=== PATIENT | female | born 1985 | race Native Hawaiian/Other Pacific Islander ===

== ENCOUNTER 2017-06-26 23:24 | Emergency (ER) | payer SELFPAY ==
[2017-06-27] MEDS ORDERED: Sodium Chloride 0.9% 1,000 ML IV STA (00:06)
[2017-06-27 00:32] VITALS: O2SAT 100
[2017-06-27 00:33] VITALS: BMI 20.3
[2017-06-27 01:15] LABS: BASO # 0.07 K/mm3 (0.0-2.0); EOS # 0.3 (0.0-0.7); EOS % 4.4 % (1.5-5.0); GRAN # 3.75 (1.4-6.5); GRAN % 53.5 % (50.0-68.0); HEMOGLOBIN 14.2 gm/dL (12.0-16.0); LYMPH # 2.2 (1.2-3.4); LYMPH % 31.4 % (22.0-35.0); MEAN CELL VOLUME 84.5 fL (80.0-105.0); MEAN CORPUSCULAR HGB CONC 34.3 g/dl (31.0-37.0); MEAN PLATELET VOLUME 10.3 fl (7.0-11.0); MONO # 0.7 (0.1-0.6); MONO % 9.7 % (1.0-6.0); PLATELET COUNT 338 10^3/uL (120.0-450.0); RED CELL DISTRIBUTION WIDTH 12.7 % (11.5-14.5)
--- NOTE | 2017-06-27 01:54 | US ---
EXAM: US Pelvis, Transvaginal CLINICAL HISTORY: 31 years old, female; Pain; Pelvic pain; Patient HX: Bleeding; LMP 06/23/17 TECHNIQUE: Real-time transvaginal pelvic ultrasound (complete) with image documentation. Transvaginal imaging was used for better evaluation of the endometrium and adnexa. EXAM DATE/TIME: 06/27/2017 12:06 AM COMPARISON: There are no prior studies for comparison. FINDINGS: Uterus: Uterus is approximately 10 x 4.4 x 5.6 cm. Endometrium measures approximately 6.1 mm in width. There is a posterior 1.7 x 1.4 x 1.8 cm fibroid. Right ovary: Right ovary measures approximately 2.95 x 1.77 x 2.85 cm. There are multiple small follicles. There is intraovarian blood flow. Left ovary: Left ovary measures approximately 2.35 x 1.86 x 2.99 cm. There are multiple small follicles. There is intraovarian blood flow. Free fluid: There is a small amount of free fluid. IMPRESSION: Small uterine fibroid; no torsion
[2017-06-27 01:57] LABS: PH,URINE 6.5 (4.7-8.0); URINE BILIRUBIN NEGATIVE (NEGATIVE); URINE BLOOD LARGE (NEGATIVE); URINE GLUCOSE (UA) NEGATIVE (NEGATIVE); URINE LEUKOCYTE ESTERASE NEGATIVE Leu/uL (NEGATIVE); URINE NITRATE NEGATIVE (NEGATIVE); URINE PROTEIN NEGATIVE mg/dL (<30 mg/dL); URINE UROBILINOGEN 0.2 E.U./dL (<1 E.U./dL)
--- NOTE | 2017-06-27 01:58 | ED PDOC ---
Arrival/HPI - General Chief Complaint: Female Genitourinary Time Seen by Provider: 06/27/17 00:04 Historian: Patient - History of Present Illness Narrative History of Present Illness (Text): 06/27/17 01:46 31yr old female presents today with lower abdominal pain/cramping. pt states on 3 days ago pt started to get her period and has been having heavy bleeding. pt states 4 day ago she had 5 episodes of vomiting. pt states since she has been nauseous. pt states she sometimes gets nausea from her menstrual cramps. pt c/ o chills. denies fevers. no cp or sob. no dizziness or weakness. took advil for pain without improvement. Last dose of advil at 4pm. no urinary symptoms. No sick contacts. no other complaints. Time/Duration: Other (3 days) Symptom Onset: Gradual Symptom Course: Intermittent Quality: Cramping Severity Level: 6 Past Medical History - Provider Review Nursing Documentation Reviewed: Yes - Travel History Have you recently traveled outside [place] w/in the past 3 mons?: No - Infectious Disease Hx of Infectious Diseases: None - Tetanus Immunization Tetanus Immunization: Unknown - Psychiatric Hx Substance Use: No Family/Social History - Physician Review Nursing Documentation Reviewed: Yes Family/Social History: Unknown Family HX Smoking Status: Never Smoked Hx Alcohol Use: Yes Frequency of alcohol use: Socially Hx Substance Use: No Allergies/Home Meds Allergies/Adverse Reactions: Allergies No Known Allergies Allergy (Verified 06/27/17 00:06) Review of Systems - Review of Systems Constitutional: absent: Fatigue, Fevers Respiratory: absent: SOB, Cough Cardiovascular: absent: Chest Pain, Palpitations Gastrointestinal: Abdominal Pain, Nausea, Vomiting. absent: Constipation, Diarrhea Genitourinary Female: Vaginal Bleeding. absent: Dysuria, Frequency, Hematuria, Vaginal Discharge Musculoskeletal: Back Pain. absent: Arthralgias, Neck Pain Skin: absent: Rash, Pruritis Neurological: absent: Headache, Dizziness Psychiatric: absent: Anxiety, Depression Physical Exam Vital Signs Reviewed: Yes Vital Signs Temp Pulse Resp BP Pulse Ox 06/27/17 00:00 98.0 F 54 L 16 143/97 H 100 Temperature: Afebrile Blood Pressure: Hypertensive Pulse: Regular Respiratory Rate: Normal Appearance: Positive for: Well-Appearing, Non-Toxic, Comfortable Pain Distress: None Mental Status: Positive for: Alert and Oriented X 3 - Systems Exam Head: Present: Atraumatic Mouth: Present: Moist Mucous Membranes Neck: Present: Normal Range of Motion Respiratory/Chest: Present: Clear to Auscultation, Good Air Exchange. No: Respiratory Distress, Accessory Muscle Use Cardiovascular: Present: Regular Rate and Rhythm, Normal S1, S2. No: Murmurs Abdomen: Present: Tenderness (minimal suprapubic tenderness), Normal Bowel Sounds. No: Distention, Peritoneal Signs, Rebound, Guarding Genitourinary/Pelvic Exam: Present: Normal External Genitalia, Vaginal Bleeding (minimal bleeding noted), Cervical os Closed, Other (chaparoned by Anastasiia PHILIP EMT). No: Vaginal Discharge, Vaginal Lesions, Adenexal Tenderness, Adenexal Mass, Cervical Motion Tendernes, Odor Back: Present: Normal Inspection. No: CVA Tenderness, Midline Tenderness, Paraspinal Tenderness Neurological: Present: GCS=15, Speech Normal Skin: Present: Warm, Dry, Normal Color. No: Rashes Psychiatric: Present: Alert, Oriented x 3 Medical Decision Making ED Course and Treatment: 06/27/17 01:48 \ Patient is nontoxic well appearing with stable vital signs presenting with lower abdominal cramping and heavy bleeding x 3 days. CBC wnl CMP wnl beta; negative Urinalysis + blood Ultrasound:FINDINGS: Uterus: Uterus is approximately 10 x 4.4 x 5.6 cm. Endometrium measures approximately 6.1 mm in width. There is a posterior 1.7 x 1.4 x 1.8 cm fibroid. Right ovary: Right ovary measures approximately 2.95 x 1.77 x 2.85 cm. There are multiple small follicles. There is intraovarian blood flow. Left ovary: Left ovary measures approximately 2.35 x 1.86 x 2.99 cm. There are multiple small follicles. There is intraovarian blood flow. Free fluid: There is a small amount of free fluid. IMPRESSION: Small uterine fibroid; no torsion toradol and zofran given IV NS iv bolus Patient reassessment: pt non toxic well appearing; no distress. feeling better after medications. vitals stable. Discussed all results with patient in depth. advised f/u with [facility]NA[facility]. advised increase fluids. advised immediate return if symptoms worsen,persist or if new symptoms develop. Patient/parent verbalized full agreement with and understanding of discharge instructions. States that she agrees with the plan and disposition. Verbalized and repeated discharge instructions and plan. I have given her the opportunity to ask any additional questions. Impression: Abdominal pain, vaginal bleeding, uterine fibroid Motrin every 6 hours as needed for pain increase fluids follow up with the [facility] MANAGER within the next 2 days. Follow up with primary care physician within the next 2 days Return immediately if symptoms worsen persist or if new symptoms develop: High fevers, increasing pain, vomiting, diarrhea or any other concerning symptoms develop 06/27/17 02:45 - Lab Interpretations Lab Results: 06/27/17 00:37 06/27/17 01:02 Lab Results 06/27/17 01:33: Urine Color Yellow, Urine Appearance Clear, Urine pH 6.5, Ur Specific [place] <= 1.005, Urine Protein Negative, Urine Glucose (UA) Negative, Urine Ketones Negative, Urine Blood Large H, Urine Nitrate Negative, Urine Bilirubin Negative, Urine Urobilinogen 0.2, Ur Leukocyte Esterase Negative, Urine RBC 0 - 2, Urine WBC 0 - 2, Ur Epithelial Cells 0 - 2, Urine HCG, Qual Negative 06/27/17 01:02: Sodium 138, Potassium 3.3 L, Chloride 107, Carbon Dioxide 23, Anion Gap 11, BUN 7, Creatinine 0.6, Est GFR ( Amer) > 60, Est GFR (Non- Af Amer) > 60, Random Glucose 81, Calcium 8.0 L, Total Bilirubin 0.6, AST 27, ALT 19, Alkaline Phosphatase 48, Total Protein 6.5, Albumin 3.5, Globulin 3.1, Albumin/Globulin Ratio 1.1 06/27/17 00:37: WBC 7.0, RBC 4.90, Hgb 14.2, Hct 41.4, MCV 84.5, MCH 29.0, MCHC 34.3, RDW 12.7, Plt Count 338, MPV 10.3, Gran % 53.5, Lymph % (Auto) 31.4, [place] % (Auto) 9.7 H, Eos % (Auto) 4.4, Baso % (Auto) 1.0, Gran # 3.75, Lymph # 2.2, [place] # 0.7 H, Eos # 0.3, Baso # 0.07 06/27/17 00:37: Beta HCG, Quant < 2.39 - RAD Interpretation Radiology Orders: 06/27/17 00:06 TRANSVAGINAL [US] Stat - Medication Orders Current Medication Orders: Discontinued Medications Sodium Chloride (Sodium Chloride 0.9%) 1,000 mls @ 999 mls/hr IV .Q1H1M STA Stop: 06/27/17 01:06 Last Admin: 06/27/17 01:15 Dose: 999 mls/hr Ketorolac Tromethamine (Toradol) 30 mg IVP STAT STA Stop: 06/27/17 01:44 Last Admin: 06/27/17 02:03 Dose: 30 mg Ondansetron HCl (Zofran Inj) 4 mg IVP STAT STA Stop: 06/27/17 01:44 Last Admin: 06/27/17 02:04 Dose: 4 mg Potassium Chloride (K-Dur 20 Meq Er Tab) 40 meq PO STAT STA Stop: 06/27/17 02:05 Last Admin: 06/27/17 02:10 Dose: 40 meq Disposition/Present on Arrival - Present on Arrival Any Indicators Present on Arrival: No History of DVT/PE: No History of Uncontrolled Diabetes: No Urinary Catheter: No History of Decub. Ulcer: No History Surgical Site Infection Following: None - Disposition Have Diagnosis and Disposition been Completed?: Yes Diagnosis: Dysmenorrhea, Uterine fibroid Disposition: HOME/ ROUTINE Disposition Time: 02:39 Patient Plan: Discharge Patient Problems: Current Active Problems Problem Status Onset Dysmenorrhea Acute Uterine fibroid Acute Condition: GOOD Discharge Instructions (ExitCare): Dysmenorrhea (ED), Uterine Fibroids (ED) Additional Instructions: Motrin every 6 hours as needed for pain increase fluids follow up with the [facility] MANAGER within the next 2 days. Follow up with primary care physician within the next 2 days Return immediately if symptoms worsen persist or if new symptoms develop: High fevers, increasing pain, vomiting, diarrhea or any other concerning symptoms develop Prescriptions: Ibuprofen [Motrin] 600 mg PO Q6H PRN #20 tab PRN Reason: pain/fever reduction Referrals: Stormy León MD [Staff Provider] - [facility] [[facility]] - Follow up with primary [facility] [Outside] - Follow up with primary Glenny Christianson MD [Staff Provider] - Follow up with primary Forms: [employer] ([place]), WORK NOTE
[2017-06-27 02:01] LABS: ALB/GLOB RATIO 1.1 (1.1-1.8); ALBUMIN 3.5 g/dL (3.0-4.8); ALT/SGPT 19 U/L (7-56); AST/SGOT 27 U/L (15-39); BLOOD UREA NITROGEN 7 mg/dL (7-21); GFR AFRICAN-AMERICAN > 60; GFR NON-AFRICAN AMERICAN > 60
[2017-06-27] MEDS ORDERED: Potassium Chloride 20 mEq ER Tab PO STA (02:04)
[2017-06-27 02:11] LABS: HCG,QUALITATIVE URINE NEGATIVE (NEGATIVE); URINE APPEARANCE CLEAR (CLEAR); URINE COLOR YELLOW (YELLOW)
[2017-06-27 02:14] LABS: URINE EPITHELIAL CELLS 0 - 2 /hpf (0-5); URINE RBC 0 - 2 /hpf (0-2); URINE WBC 0 - 2 /hpf (0-6)
[2017-06-27 02:48] VITALS: BP 122/80; PULSE 52; RESP 18; TEMP 98.3
== END 2017-06-27 02:59 | disposition home or self-care (01) ==
LOC: ED 23:24 → MERGE 23:24 → ED 06-27 02:59
DX: N94.6 Dysmenorrhea, unspecified (principal); D25.9 Leiomyoma of uterus, unspecified
CPT/HCPCS: 76830; 80053; 81001; 84702; 84703; 85025; 96374; 96375; 99283; J1885; J2405; J7040

== ENCOUNTER 2019-04-24 13:09 | Emergency (ER) | payer SELFPAY ==
[2019-04-24 13:09] VITALS: BMI 20.3
[2019-04-24 13:24] VITALS: TEMP 97.7; O2SAT 100
[2019-04-24] MEDS ORDERED: Sodium Chloride 0.9% 1,000 ML IV STA (13:29)
[2019-04-24 13:53] LABS: BASO # 0.06 K/mm3 (0.0-2.0); BASO % 0.5 % (0.0-3.0); EOS # 0.2 (0.0-0.7); HEMOGLOBIN 13.5 g/dL (12.0-16.0); LYMPH # 1.1 (1.2-3.4); LYMPH % 9.5 % (22.0-35.0); MEAN CELL VOLUME 83.6 fl (80.0-105.0); MEAN CORPUSCULAR HEMOGLOBIN 27.7 pg (25.0-35.0); MEAN CORPUSCULAR HGB CONC 33.1 g/dl (31.0-37.0); MEAN PLATELET VOLUME 10.8 fl (7.0-11.0); MONO # 0.8 (0.1-0.6); MONO % 6.4 % (1.0-6.0); RBC 4.88 10^6/uL (3.5-6.1); RED CELL DISTRIBUTION WIDTH 13.9 % (11.5-14.5)
[2019-04-24 14:06] LABS: ALB/GLOB RATIO 1.2 (1.1-1.8); ALBUMIN 4.5 g/dL (3.0-4.8); ALT/SGPT 24 U/L (7-56); AST/SGOT 30 U/L (14-36); BLOOD UREA NITROGEN 10 mg/dL (7-21); CALCIUM 9.4 mg/dL (8.4-10.5); GFR NON-AFRICAN AMERICAN > 60; LIPASE 86 U/L (23-300)
[2019-04-24 15:32] VITALS: RESP 16
[2019-04-24 15:34] LABS: PH,URINE 6.5 (4.7-8.0); URINE BILIRUBIN NEGATIVE (NEGATIVE); URINE BLOOD NEGATIVE (NEGATIVE); URINE GLUCOSE (UA) NEGATIVE (NEGATIVE); URINE LEUKOCYTE ESTERASE NEGATIVE Leu/uL (NEGATIVE); URINE PROTEIN NEGATIVE mg/dL (<30 mg/dL); URINE UROBILINOGEN 0.2 E.U./dL (<1 E.U./dL)
[2019-04-24 15:38] LABS: URINE APPEARANCE CLEAR (CLEAR); URINE COLOR YELLOW (YELLOW)
[2019-04-24 16:23] VITALS: BP 107/70; PULSE 92
--- NOTE | 2019-04-24 16:56 | ED PDOC ---
Arrival/HPI - General Chief Complaint: GI Problem Time Seen by Provider: 04/24/19 13:19 Historian: Patient - History of Present Illness Narrative History of Present Illness (Text): 04/24/19 13:32 A 33 year old female with no significant past medical history presents to the emergency department complaining of mild nausea and non-bilious, non-bloody vomit since earlier today. Patient reports slight decrease in PO intake but can tolerate liquids. Patient notes coming back from [place] 6 days ago. Patient reports no GI symptoms until this point. Patient denies any fever, hematuria, vaginal bleeding/discharge, or any other complaints. PMD: David Bass Time/Duration: Other (earlier today) Symptom Onset: Gradual Symptom Course: Unchanged Activities at Onset: Light Context: Home Past Medical History - Provider Review Nursing Documentation Reviewed: Yes - Infectious Disease Hx of Infectious Diseases: None - Tetanus Immunization Tetanus Immunization: Unknown - Reproductive Menopause: No - Cardiac Hx Cardiac Disorders: No Hx Hypertension: No - Pulmonary Hx Tuberculosis: No - Neurological HX Cerebrovascular Accident: No Hx Seizures: No - Hematological/Oncological Hx Cancer: No - Genitourinary/Gynecological Hx Sexually Transmitted Diseases: No - Psychiatric Hx Depression: Yes Hx Substance Use: No - Anesthesia Hx Anesthesia: No - Suicidal Assessment Feels Threatened In Home Enviroment: No Family/Social History - Physician Review Nursing Documentation Reviewed: Yes Family/Social History: No Known Family HX Smoking Status: Former Smoker Hx Alcohol Use: No Hx Substance Use: No Allergies/Home Meds Allergies/Adverse Reactions: Allergies No Known Allergies Allergy (Verified 06/24/15 15:56) Review of Systems - Physician Review All systems were reviewed & negative as marked: Yes - Review of Systems Constitutional: absent: Fevers Gastrointestinal: Nausea, Vomiting Genitourinary Female: absent: Hematuria, Vaginal Bleeding, Vaginal Discharge Physical Exam Vital Signs Temp Pulse Resp BP Pulse Ox 04/24/19 16:22 92 H 16 107/70 100 04/24/19 15:32 66 16 110/66 100 04/24/19 13:30 61 100 04/24/19 13:19 97.7 F 74 20 136/89 100 Temperature: Afebrile Blood Pressure: Normal Pulse: Regular Respiratory Rate: Normal Appearance: Positive for: Well-Appearing, Non-Toxic Pain Distress: None Mental Status: Positive for: Alert and Oriented X 3 - Systems Exam Head: Present: Atraumatic, Normocephalic Pupils: Present: PERRL Extroacular Muscles: Present: EOMI Conjunctiva: Present: Normal Mouth: Present: Dry Respiratory/Chest: Present: Clear to Auscultation, Good Air Exchange. No: Respiratory Distress, Accessory Muscle Use Cardiovascular: Present: Regular Rate and Rhythm, Normal S1, S2. No: Murmurs Abdomen: No: Tenderness, Distention, Peritoneal Signs Upper Extremity: Present: Normal Inspection. No: Cyanosis, Edema Lower Extremity: Present: Normal Inspection. No: Edema Neurological: Present: GCS=15, CN II-XII Intact, Speech Normal Skin: Present: Warm, Dry, Normal Color. No: Rashes Psychiatric: Present: Alert, Oriented x 3, Normal Insight, Normal Concentration Medical Decision Making ED Course and Treatment: 04/24/19 13:32 Impression: 33 year old female presenting to the emergency room complaining of mild nausea and non-bilious, non-bloody vomit. Plan: -- Pepcid -- Zofran -- IV fluids -- Urine culture -- Reassess and disposition Prior Visits: Notes and results from previous visits were reviewed. Progress Notes: 04/24/19 15:15 Upon re-evaluation, patient reports she is feeling better and will be ready for discharge. - Lab Interpretations Lab Results: Total Bilirubin 0.5 mg/dL (0.2-1.3) 04/24/19 13:37 AST 30 U/L (14-36) 04/24/19 13:37 ALT 24 U/L (7-56) 04/24/19 13:37 Alkaline Phosphatase 62 U/L (38-126) 04/24/19 13:37 Total Protein 8.2 g/dL (5.8-8.3) 04/24/19 13:37 Albumin 4.5 g/dL (3.0-4.8) 04/24/19 13:37 Globulin 3.7 gm/dL 04/24/19 13:37 Albumin/Globulin Ratio 1.2 (1.1-1.8) 04/24/19 13:37 Lipase 86 U/L (23-300) 04/24/19 13:37 Urine Color Yellow (YELLOW) 04/24/19 15:00 Urine Appearance Clear (CLEAR) 04/24/19 15:00 Urine pH 6.5 (4.7-8.0) 04/24/19 15:00 Ur Specific [place] 1.015 (1.005-1.035) 04/24/19 15:00 Urine Protein Negative mg/dL (<30 mg/dL) 04/24/19 15:00 Urine Glucose (UA) Negative mg/dL (NEGATIVE) 04/24/19 15:00 Urine Ketones 15 mg/dL (NEGATIVE) H 04/24/19 15:00 Urine Blood Negative (NEGATIVE) 04/24/19 15:00 Urine Nitrate Negative (NEGATIVE) 04/24/19 15:00 Urine Bilirubin Negative (NEGATIVE) 04/24/19 15:00 Urine Urobilinogen 0.2 E.U./dL (<1 E.U./dL) 04/24/19 15:00 Ur Leukocyte Esterase Negative [place]/uL (NEGATIVE) 04/24/19 15:00 Beta HCG, Quant < 2.39 mIU/mL (0-6.15) 04/24/19 13:37 - Medication Orders Current Medication Orders: Discontinued Medications Famotidine (Pepcid) 20 mg IVP STAT STA Stop: 04/24/19 13:30 Last Admin: 04/24/19 14:27 Dose: 20 mg IVP Administration Document 04/24/19 14:27 MA (Rec: 04/24/19 14:27 MA [facility] [id number]) Charges for Administration # of IVP Administrations 1 Sodium Chloride (Sodium Chloride 0.9%) 1,000 mls @ 1,000 mls/hr IV .Q1H STA Stop: 04/24/19 14:28 Last Admin: 04/24/19 13:38 Dose: 1,000 mls/hr eMAR Start Stop Document 04/24/19 13:38 GMI (Rec: 04/24/19 13:39 GMI [id number]) Intravenous Solution Start Date 04/24/19 Start Time 13:39 End Date 04/24/19 End time 14:40 Total Infusion Time 61 Ondansetron HCl (Zofran Inj) 4 mg IVP STAT STA Stop: 04/24/19 13:30 Last Admin: 04/24/19 14:26 Dose: 4 mg IVP Administration Document 04/24/19 14:26 MA (Rec: 04/24/19 14:27 MA [facility] [id number]) Charges for Administration # of IVP Administrations 1 - Scribe Statement The provider has reviewed the documentation as recorded by the Scribe Malika Medina All medical record entries made by the Scribe were at my direction and personally dictated by me. I have reviewed the chart and agree that the record accurately reflects my personal performance of the history, physical exam, medical decision making, and the department course for this patient. I have also personally directed, reviewed, and agree with the discharge instructions and disposition. Disposition/Present on Arrival - Present on Arrival Any Indicators Present on Arrival: No History of DVT/PE: No History of Uncontrolled Diabetes: No Urinary Catheter: No History of Decub. Ulcer: No History Surgical Site Infection Following: None - Disposition Have Diagnosis and Disposition been Completed?: Yes Diagnosis: Gastritis Disposition: HOME/ ROUTINE Disposition Time: 15:30 Condition: IMPROVED Discharge Instructions (ExitCare): Gastritis (DC) Additional Instructions: SEVERO LUCAS, thank you for letting us take care of you today. The emergency medical care you received today was directed at your acute symptoms. If you were prescribed any medication, please fill it and take as directed. It may take several days for your symptoms to resolve. Return to the Emergency Department if your symptoms worsen, do not improve, or if you have any other problems. Please contact your doctor or call one of the physicians/clinics you have been referred to that are listed on the Patient Visit Information form that is included in your discharge packet. Bring any paperwork you were given at discharge with you along with any medications you are taking to your follow up visit. Our treatment cannot replace ongoing medical care by a primary care provider outside of the emergency department. Thank you for allowing the [employer] team to be part of your care today. Maintain hydration throughout the day. Follow up with your primary care doctor in 3-4 days if you have any concerns. Prescriptions: Famotidine [Pepcid] 20 mg PO BID #14 tab Ondansetron ODT [Zofran ODT] 4 mg PO Q8 PRN #20 odt PRN Reason: Nausea/Vomiting Referrals: David Fleming MD [Primary Care Provider] - Follow up with primary Forms: [employer] ([place])
== END 2019-04-24 16:23 | disposition home or self-care (01) ==
LOC: ED 13:09
DX: K29.70 Gastritis, unspecified, without bleeding (principal)
CPT/HCPCS: 80053; 81003; 81025; 83690; 83735; 84702; 85025; 87086; 96361; 96374; 96375; 99284; J2405; J7030